=== PATIENT | male | born 1940 | race Caucasian/White ===

== ENCOUNTER → 2017-10-15 | Outpatient (CLI) | payer MEDICARE | END | disposition home or self-care (01) | LOC: PCVCCLINIC 12:52 | DX: I42.8 Other cardiomyopathies (principal); I51.7 Cardiomegaly; I50.23 Acute on chronic systolic (congestive) heart failure; R06.09 Other forms of dyspnea; R94.31 Abnormal electrocardiogram [ECG] [EKG]; Z79.82 Long term (current) use of aspirin; Z87.891 Personal history of nicotine dependence | CPT/HCPCS: 93005; G0463 ==

== ENCOUNTER → 2017-10-21 | Outpatient (CLI) | payer MEDICARE ==
[~2017-10-21] MED LIST: DIAZEPAM 10 MG TABLET.; IOHEXOL 350 MG/ML 100 ML VIAL.; IOHEXOL 350 MG/ML 50 ML VIAL.; IV NORMAL SALINE 500ML BAG 500 ML; MIDAZOLAM HCL/PF 2 MG/2 ML VIAL.; fentaNYL PF VIAL 100 MCG/2 ML VIAL
== END | disposition home or self-care (01) ==
LOC: PCVCINTER 09:07
DX: I25.10 Atherosclerotic heart disease of native coronary artery without angina pectoris (principal); I11.0 Hypertensive heart disease with heart failure; I50.9 Heart failure, unspecified
CPT/HCPCS: 36252; 93460; C1751; C1760; C1769; C1894; J1644; J2250; J3010; J7040; Q9967

== ENCOUNTER → 2017-11-08 | Outpatient (CLI) | payer MEDICARE | END | disposition home or self-care (01) | LOC: PCVCCLINIC 13:56 | DX: I25.10 Atherosclerotic heart disease of native coronary artery without angina pectoris (principal); I11.0 Hypertensive heart disease with heart failure; I50.23 Acute on chronic systolic (congestive) heart failure; R93.1 Abnormal findings on diagnostic imaging of heart and coronary circulation; R94.31 Abnormal electrocardiogram [ECG] [EKG]; Z82.49 Family history of ischemic heart disease and other diseases of the circulatory system; Z79.82 Long term (current) use of aspirin; Z79.899 Other long term (current) drug therapy | CPT/HCPCS: 80061; 93005; G0463 ==

== ENCOUNTER → 2018-02-17 | Outpatient (CLI) | payer MEDICARE | END | disposition home or self-care (01) | LOC: PCVCCLINIC 11:21 | PROVIDERS: ATTEND Internal Medicine Cardiovascular Disease | DX: I25.10 Atherosclerotic heart disease of native coronary artery without angina pectoris (principal); R94.31 Abnormal electrocardiogram [ECG] [EKG]; I42.9 Cardiomyopathy, unspecified; E78.00 Pure hypercholesterolemia, unspecified; I10 Essential (primary) hypertension; I70.1 Atherosclerosis of renal artery; Z87.891 Personal history of nicotine dependence; Z79.82 Long term (current) use of aspirin | CPT/HCPCS: 93005; G0463 ==

== ENCOUNTER → 2018-06-15 | Outpatient (CLI) | payer MEDICARE ==
--- NOTE | 2018-06-15 16:00 | PCVCIMAG ---
APPROVED REPORT Study performed: 06/15/2018 10:16:59 Exam: Stress Echocardiogram Indication: CAD s/p PCI, Cardiomyopathy Patient Location: Echo lab Stress Nurse: Rupinder Mccauley RN Room #: 2 Status: routine Ht: 6 ft 0 in HR: 112 bpm Rhythm: NSR,First degree AV Block Medical History Medical History: CAD s/p stent, Cardiomyopathy, HX of Heart failure, HTN Cardiac Risk Factors: HTN Previous Cardiac Procedures: PCI Pretest Chest Pain Characteristics: No chest pain Exercise History: Physically active Procedure The patient underwent an Exercise Stress Test using the Chu Protocol. Blood pressure, heart rate, and EKG were monitored. An Echocardiogram was performed by fuel testing technician in four stages in quad fashion. At peak stress, four selected images were obtained and placed side by side with resting images for comparison. Stress Test Details Stress Test: Exercise stress testing was performed using a Chu protocol. HR Resting HR: 112 bpmMax Heart Rate (APMHR): 144 bpm Max HR Achieved: 173 bpmTarget HR (85% APMHR): 122 bpm % of APMHR: 120 Recovery HR: 106 bpm HR response to stress: Normal HR response to stress BP Resting BP: 130/72 mmHg Max BP: 168/72 mmHg Recovery BP: 144/78 mmHg BP response to stress: Normal blood pressure response to stress. ECG Resting ECG: Sinus Rhythm, , 1st degree AV block Stress ECst degree AV block ST Change: Non-diagnostic ST-T wave changes Arrhythmia: occasional PVCs Recovery ECst degree AV block Recovery ST Change: Non-ischemic Recovery Arrhythmia: occasional PVCs Clinical No complications. Stress ECG Conclusion The patient exercised according to the CHU protocol for 3:56 mins; achieving a work level of 6.8 METS. The resting heart rate of 112 bpm kathy to a maximum heart rate of 172 bpm. This value represent 120% of the maximal, age-predicted heart rate. The resting blood pressure of 130/72 mmHg, kathy to a maximum blood pressure of 168/72 mmHg. The exercise test was stopped due to fatigue. Pre-Stress Echo The resting Echocardiogram showed abnormal left ventricular contractility with an estimated Ejection Fraction of about 30-35%. The resting Echocardiogram demonstrated wall motion abnormality in the septal and , inferior wall. Moderate global hypokinesis with severe hypokinesis of the septal and inferior hastings and apex are seen at rest. This is consistent with known prior history. Post-Stress Echo The stress Echocardiogram showed abnormal left ventricular contractility with an estimated Ejection Fraction of about 40-45%. Moderate to severe hypokinesis is seen in the septal and inferior hastings and apex. Improved function is seen in all other hastings. Conclusion Clinical Response: Non-ischemic Exercise Capacity: Below Average Stress ECG Response: Non-ischemic Stress Echo Images: Non-ischemic No clinical, EKG or echocardiographic evidence for ischemia. No echocardiographic evidence for exercise induced ischemia. Normal stress echocardiogram with maximal exercise stress. No prior study available for comparison. <Conclusion> No clinical, EKG or echocardiographic evidence for ischemia. No echocardiographic evidence for exercise induced ischemia. Normal stress echocardiogram with maximal exercise stress.
== END | disposition home or self-care (01) ==
LOC: PCVCIMAG 13:00
PROVIDERS: ATTEND Internal Medicine Cardiovascular Disease
DX: I25.10 Atherosclerotic heart disease of native coronary artery without angina pectoris (principal); I42.9 Cardiomyopathy, unspecified; I10 Essential (primary) hypertension
CPT/HCPCS: 93325; 93351

== ENCOUNTER → 2018-11-16 | Outpatient (CLI) | payer MEDICARE | LOC: PCVCCLINIC 10:30 | PROVIDERS: ATTEND Internal Medicine Cardiovascular Disease | DX: I25.10 Atherosclerotic heart disease of native coronary artery without angina pectoris (principal); E78.5 Hyperlipidemia, unspecified; I42.9 Cardiomyopathy, unspecified; E11.9 Type 2 diabetes mellitus without complications; I11.0 Hypertensive heart disease with heart failure; I50.9 Heart failure, unspecified; Z87.891 Personal history of nicotine dependence; Z79.82 Long term (current) use of aspirin; Z79.899 Other long term (current) drug therapy | CPT/HCPCS: 36415; 80061; 93005; G0463 ==